=== PATIENT | female | born 1975 | race Caucasian/White ===

== ENCOUNTER 2017-12-23 01:07 | Emergency (ER) | payer OTHER ==
[2017-12-23] MEDS ORDERED: Rocephin 1000 MG INJ IM ONE (01:18)
[2017-12-23] MEDS ORDERED: TORAdol 30 mg Injection IM ONE (01:18)
[2017-12-23] MEDS ORDERED: Robitussin AC Syrup Unit Dose Cup PO PRN (01:18)
[2017-12-23] MEDS ORDERED: TORAdol 30 mg Injection ONE (01:24)
[2017-12-23] MEDS ORDERED: Robitussin AC Syrup Unit Dose Cup ONE (01:24)
[2017-12-23] MEDS ORDERED: Rocephin 1000 MG INJ ONE (01:24)
--- NOTE | 2017-12-23 01:24 | ERPHSYRPT ---
- History of Present Illness Time Seen by Provider: 12/23/17 01:14 Source: patient Exam Limitations: no limitations Physician History: FOR THE PAST 3 DAYS PT HAS HAD SINUS DRAINAGE; FOR THE PAST 2 DAYS A SORE THROAT AND LEFT EARACHE. PT HAS ALSO HAD A COUGH. PT DENIES CHEST PAIN, SHORTNESS OF AIR, ABDOMINAL PAIN. - Review of Systems Ears, Nose, & Throat: Ear Pain (LEFT), Sinus Drainage, Throat Pain Respiratory: Cough All Other Systems: Reviewed and Negative - Physical Exam General Appearance: alert Eye Exam: PERRL/EOMI Ears, Nose, Throat Exam: moist mucous membranes, TM abnormal (L) (LEFT TM ERYTHEMA), pharyngeal erythema Neck Exam: normal inspection Respiratory Exam: lungs clear Cardiovascular Exam: normal heart sounds Gastrointestinal/Abdomen Exam: soft, normal bowel sounds Back Exam: normal range of motion Extremity Exam: No pedal edema Neurologic Exam: alert, cooperative Skin Exam: warm, dry - Course Nursing assessment & vital signs reviewed: Yes - Departure Time of Disposition: 01:24 Departure Disposition: Home Clinical Impression: PHARYNGITIS, LOM Condition: Stable Critical Care Time: No Referrals: JALYN ALVARADO MD [Primary Care Provider] - Instructions: Sore Throat, Adult (DC) Additional Instructions: FOLLOW UP WITH PRIVATE DOCTOR TOMORROW. Prescriptions: Guaifenesin/Codeine Phosphate [Robitussin AC Syrup] 10 ml PO Q4H PRN PRN #120 ml PRN Reason: Cough Azithromycin 250 mg [Zithromax 250 MG TABLET] 250 mg PO ZPACK #6 tablet
[2017-12-23] MEDS ORDERED: XYLOCAINE 1% HCL 20 ML MDV ONE (01:26)
[2017-12-23 01:31] VITALS: PULSE 86; O2SAT 98
== END 2017-12-23 02:05 | disposition home or self-care (01) ==
LOC: ED 01:07
DX: J02.9 Acute pharyngitis, unspecified (principal); H66.92 Otitis media, unspecified, left ear
CPT/HCPCS: 96372; 96374; 99283; 99284; J0696; J1885; J2550; Q0162; A9270-GY

== ENCOUNTER 2017-12-23 06:34 | Emergency (ER) | payer OTHER ==
[2017-12-23] MEDS ORDERED: Phenergan 25 MG INJ IV ONE (06:47)
[2017-12-23] MEDS ORDERED: Phenergan 25 MG INJ ONE (06:49)
--- NOTE | 2017-12-23 06:54 | ERPHSYRPT ---
- History of Present Illness Time Seen by Provider: 12/23/17 06:35 Source: patient Exam Limitations: no limitations Physician History: FOR THE PAST 3 DAYS PT HAS HAD SINUS DRAINAGE; FOR THE PAST 2 DAYS A SORE THROAT AND LEFT EARACHE. PT HAS ALSO HAD A COUGH. PT WAS AT [facility] ER EARLIER THIS AM AND RECEIVED IM ROCEPHIN, IM TORADOL AND PO ROBITUSSIN AC WITH DX PHARYNGITIS AND LOM. PT RETURNS TO ER BECAUSE SHE VOMITED X3 WITHOUT BLOOD AND HAS NASAL CONGESTION. PT STILL DENIES SHORTNESS OF AIR, CHEST PAIN, ABDOMINAL PAIN. Allergies/Adverse Reactions: Penicillins Allergy (Mild, Verified 12/23/17 01:31) Hx Tetanus, Diphtheria Vaccination/Date Given: No Hx Influenza Vaccination/Date Given: No Hx Pneumococcal Vaccination/Date Given: No - Review of Systems Constitutional: No Fever Ears, Nose, & Throat: Ear Pain (LEFT), Nose Congestion, Sinus Drainage, Throat Pain Respiratory: No Dyspnea Cardiac: No Chest Pain Abdominal/Gastrointestinal: Vomiting, No Abdominal Pain All Other Systems: Reviewed and Negative - Past Medical History Pertinent Past Medical History: No Neurological History: No Pertinent History ENT History: No Pertinent History Cardiac History: No Pertinent History Respiratory History: No Pertinent History Endocrine Medical History: No Pertinent History Musculoskeletal History: No Pertinent History GI Medical History: No Pertinent History History: No Pertinent History Psycho-Social History: No Pertinent History Female Reproductive Disorders: No Pertinent History - Past Surgical History Past Surgical History: Yes Neuro Surgical History: No Pertinent History Cardiac: No Pertinent History Respiratory: No Pertinent History Gastrointestinal: Cholecystectomy Genitourinary: No Pertinent History Musculoskeletal: No Pertinent History Female Surgical History: No Pertinent History - Social History Smoking Status: Former smoker Exposure to second hand smoke: No Drug Use: none Patient Lives Alone: No - Physical Exam General Appearance: alert Eye Exam: PERRL/EOMI Ears, Nose, Throat Exam: moist mucous membranes, TM abnormal (L) (LEFT TM ERYTHEMATOUS), pharyngeal erythema, other (MILD NASAL CONGESTION) Neck Exam: normal inspection Respiratory Exam: lungs clear Cardiovascular Exam: normal heart sounds Gastrointestinal/Abdomen Exam: soft, normal bowel sounds Back Exam: normal range of motion Extremity Exam: normal inspection Neurologic Exam: alert, cooperative Skin Exam: warm, dry - Course Nursing assessment & vital signs reviewed: Yes Ordered Tests: Medication Summary Discontinued Medications Generic Name Dose Route Start Last Admin Trade Name Freq PRN Reason Stop Dose Admin Promethazine HCl 12.5 mg 12/23/17 06:47 Phenergan 25 Mg Inj IV 12/23/17 06:48 STAT ONE - Departure Time of Disposition: 07:03 Departure Disposition: Home Clinical Impression: PHARYNGITIS, LOM, RHINITIS, VOMITING Condition: Stable Critical Care Time: No Referrals: JALYN ALVARADO MD [Primary Care Provider] - Instructions: Ear Infections (Otitis Media) (DC), Nausea and Vomiting, Adult ( DC) Additional Instructions: FOLLOW UP WITH PRIVATE DOCTOR TOMORROW. Prescriptions: Promethazine HCl 25 mg [Phenergan 25 mg] 25 mg PO Q4HPRN PRN #14 tablet PRN Reason: Nausea/Vomiting Cetirizine HCl [Zyrtec] 10 mg PO DAILY #10 tab.chew
[2017-12-23 07:23] VITALS: BP 171/101; PULSE 104; O2SAT 94
[2017-12-23] MEDS ORDERED: ZOFRAN ODT 4 MG PO ONE (07:37)
[2017-12-23] MEDS ORDERED: ZOFRAN ODT 4 MG ONE (07:39)
[2017-12-23] MEDS ORDERED: CLARITIN 10 MG PO SCH (10:00)
== END 2017-12-23 07:58 | disposition home or self-care (01) ==
LOC: ED 06:34
DX: R11.10 Vomiting, unspecified (principal); H66.92 Otitis media, unspecified, left ear; J31.0 Chronic rhinitis; J02.9 Acute pharyngitis, unspecified
CPT/HCPCS: 96374; 99282; 99284; J2550; Q0162; A9270-GY

== ENCOUNTER 2021-09-11 06:26 | Day surgery (SDC) | payer BC ==
[2021-09-11] MEDS ORDERED: Lactated Ringers 1,000 ML IV SCH (07:00)
[2021-09-11] MEDS ORDERED: XYLOCAINE 1%/Epi 1:100000 MDV 20 ML ONE (07:06)
[2021-09-11] MEDS ORDERED: ASTRINGYN 8 GM TP ONE (07:06)
[2021-09-11] MEDS ORDERED: Xylocaine-Mpf 2% 5 Ml Vial ONE (08:20)
[2021-09-11] MEDS ORDERED: DIPRIVAN 200 MG/20 ML IV ONE (08:20)
[2021-09-11] MEDS ORDERED: Zofran 4 MG/2 ML VIAL ONE (08:20)
[2021-09-11] MEDS ORDERED: Versed 2 MG/2 ML Injection ONE (08:20)
[2021-09-11] MEDS ORDERED: SUBLIMAZE 100 MCG/2 ML ONE (08:20)
[2021-09-11] MEDS ORDERED: Decadron 4 MG INJ ONE (08:20)
[2021-09-11 09:35] VITALS: O2SAT 94
[2021-09-11 09:44] VITALS: BP 145/88; PULSE 62
--- NOTE | 2021-09-12 08:18 | OP ---
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 PROCEDURES: 1) LEEP. 2) IUD removal of Mirena. SURGEON: Donnie Rodriguez D.O. GRAVITY PROSPECTOR: Ty Copeland assembler surgical garment. ANESTHESIA: General. ESTIMATED BLOOD LOSS: Minimal. COMPLICATIONS: None. INDICATIONS: The risks, benefits, indications and alternatives of the procedure were reviewed with the patient prior to procedure. The patient understood the risk of infection, bleeding, bowel injury, bladder injury, pelvic infection, cervical incompetence as well as decreased orgasmia associated with this procedure and desires to have this procedure as a possible means to alleviate her current medical condition. DESCRIPTION OF PROCEDURE AND FINDINGS: At this point the patient is taken to the operating room, given general sedation, placed in dorsal lithotomy position, prepped and draped in the usual sterile fashion. A coated speculum is then placed into the patient's vagina and the cervix was then injected circumferentially with 1% lidocaine and approximately 7 cc were used. From this point, the loop instrument was used to excise the ectocervical portion where a depth of 7 to 8 mm of ectocervical tissue was taken in a right to left motion and done so without complication. However, the IUD string was excised as well. It was determined at this time to remove the IUD which was removed with a Czech forceps. An additional 2 to 3 mm of endocervical tissue was excised in a similar fashion in a right to left motion. Hemostasis was obtained. Placed loop signals intelligence superintendent ball on the cervix of the cervix and hemostasis obtained. From this point, all instruments were removed from the patient's vaginal region. The patient was taken out of the dorsal lithotomy position. The patient was then taken out of anesthesia and was then taken to the recovery room in stable condition. All instruments and laps were accounted for x2.
== END 2021-09-11 10:00 | disposition home or self-care (01) ==
LOC: SDC 06:26
PROVIDERS: ATTEND Obstetrics & Gynecology
DX: D06.9 Carcinoma in situ of cervix, unspecified (principal); Z30.432 Encounter for removal of intrauterine contraceptive device
CPT/HCPCS: 57460; 58301; 84703; J1100; J2250; J2405; J2704; J3010; A9270-GY